=== PATIENT | male | born 1985 | race Caucasian/White ===

== ENCOUNTER 2021-02-24 19:40 | Emergency (ER) | payer OTHER ==
[~2021-02-24] VITALS: Ht 177.8 cm; Wt 88.6 kg
--- NOTE | 2021-02-24 21:23 | REPVR ---
PROCEDURE INFORMATION: Exam: XR Left Ankle Exam date and time: 02/24/2021 8:16 PM Age: 35 years old Clinical indication: Other: Injury TECHNIQUE: Imaging protocol: XR Left ankle. Views: 3 or more views. COMPARISON: No relevant prior studies available. FINDINGS: Bones/joints: Joint spaces are normal. No fracture or malalignment. Soft tissues: 2 mm density in the posterolateral foreleg soft tissues. IMPRESSION: 1. No fracture or malalignment. 2. Possible 2 mm foreign body or calcification in the posterior foreleg soft tissues. Electronically signed by: Gaurav Man On 02/24/2021 21:23:26 PM
[2021-02-24] MEDS ORDERED: IBUPROFEN 600MG TAB PO ONE (21:45)
[2021-02-24 21:57] VITALS: BP 127/65
== END 2021-02-24 22:01 | disposition home or self-care (01) ==
LOC: M ED 19:40
DX: S93.402A Sprain of unspecified ligament of left ankle, initial encounter (principal); W01.0XXA Fall on same level from slipping, tripping and stumbling without subsequent striking against object, initial encounter; Y92.018 Other place in single-family (private) house as the place of occurrence of the external cause; Z88.0 Allergy status to penicillin; F17.210 Nicotine dependence, cigarettes, uncomplicated